=== PATIENT | female | born 1980 | race Two or more races ===

== ENCOUNTER 2020-07-17 23:26 | Outpatient (CLI) | payer OTHER | END 2020-07-17 23:27 | disposition home or self-care (01) | LOC: PPH VACUNA 23:26 | DX: Z23 Encounter for immunization (principal) ==

== ENCOUNTER 2020-08-07 08:40 | Outpatient (CLI) | payer OTHER | END 2020-08-07 08:41 | disposition home or self-care (01) | LOC: PPH VACUNA 08:40 | DX: Z23 Encounter for immunization (principal) ==